=== PATIENT | male | born 1980 | race Caucasian/White ===

== ENCOUNTER 2018-04-15 17:32 | Emergency (ER) | payer BC ==
[~2018-04-15] VITALS: Ht 185.4 cm; Wt 151.0 kg
[~2018-04-15 17:32] MED LIST: GLU500 PO; INVOKANA100 MG PO; LANTI SQ; MOT800 PO
[2018-04-15 17:40] VITALS: Ht 185.4 cm; Wt 151.0 kg
[2018-04-15 18:32] VITALS: BP 160/85
== END 2018-04-15 18:32 | disposition home or self-care (01) ==
LOC: ED 17:32
DX: S61.210A Laceration without foreign body of right index finger without damage to nail, initial encounter (principal); E11.9 Type 2 diabetes mellitus without complications; F41.9 Anxiety disorder, unspecified; Z98.890 Other specified postprocedural states; Z88.5 Allergy status to narcotic agent; W26.8XXA Contact with other sharp object(s), not elsewhere classified, initial encounter; Y93.89 Activity, other specified; Y92.89 Other specified places as the place of occurrence of the external cause; Y99.8 Other external cause status